=== PATIENT | female | born 1990 | race Caucasian/White ===

== ENCOUNTER → 2019-01-17 15:32 | Outpatient (CLI) | payer MEDICAID, SELFPAY ==
[2019-01-17 14:28] VITALS: BMI 21.9
[2019-01-17 18:20] LABS: Chlamydia Trachomatis by PCR Negative (Negative); Neisserai gonorrhoeae by PCR Negative (Negative); Probe Check PASS; Sample Adequacy Control PASS; Specimen Processing Control PASS
[2019-01-22 17:11] LABS: HPV Reflexed? NOT INDICATED
== END ==
PROVIDERS: Family Provider Family Medicine; PCP Family Medicine; Referring Provider Nurse Practitioner Women's Health; Visit Provider Nurse Practitioner Women's Health
DX: Z12.4 Encounter for screening for malignant neoplasm of cervix (principal); Z11.3 Encounter for screening for infections with a predominantly sexual mode of transmission
CPT/HCPCS: 87491; 87591; 87624; 88175; G0145

== ENCOUNTER → 2022-05-18 | Outpatient (CLI) | payer MEDICAID, SELFPAY ==
[2022-05-25 17:52] LABS: HPV APTIMA, High Risk Positive (Negative)
== END | disposition home or self-care (01) ==
LOC: LABSPEC 16:38
PROVIDERS: PCP Family Medicine; Visit Provider Nurse Practitioner Women's Health
DX: Z12.4 Encounter for screening for malignant neoplasm of cervix (principal)
CPT/HCPCS: 87624; 88175; G0145

== ENCOUNTER → 2022-06-02 | Outpatient (CLI) | payer MEDICAID, SELFPAY ==
--- NOTE | 2022-06-02 12:02 | US_ITS ---
STUDY: ULTRASOUND OF THE FEMALE PELVIS - COMPLETE REASON FOR EXAM: Female, 31 years old. Pelvic pain. LMP: 05/13/2022. TECHNIQUE: Transabdominal and Transvaginal TECHNICAL QUALITY: Adequate. COMPARISON: None. FINDINGS: The uterus is anteverted and is in a midline position. The uterus measures 8.3 cm x 5.1 cm x 4.3 cm. Normal uterine cervix. The endometrium measures 4.7 mm in thickness, and is heterogeneous (striated). There is no demonstrated endometrial mass. There is no demonstrated myometrial mass. I.U.D. - The patient does have an I.U.D. . It is located within the fundal portion of the uterus. The right ovary is visualized. The right ovary measures 3.3 cm x 2.2 cm x 1.9 cm. Ovarian follicles are seen. There is no right ovarian cyst or ovarian mass. There is no visualized right adnexal mass or complex lesion. There is normal arterial and normal venous vascularity. The left ovary is visualized. The left ovary measures 2.8 cm x 2.9 cm x 1.7 cm. Ovarian follicles are seen. There is no left ovarian cyst or ovarian mass. There is no visualized left adnexal mass or complex lesion. There is normal arterial and normal venous vascularity. There is no fluid in the cul-de-sac. The pre void volume of the bladder was 151 ml. US/Transvaginal Non- IMPRESSION: IUD is seen within the endometrium. Small follicles are seen in both ovaries. Electronically Signed: Declan Goetz MD at 14:42 EDT ,
--- NOTE | 2022-06-02 12:02 | US_ITS ---
STUDY: ULTRASOUND OF THE FEMALE PELVIS - COMPLETE REASON FOR EXAM: Female, 31 years old. Pelvic pain. LMP: 05/13/2022. TECHNIQUE: Transabdominal and Transvaginal TECHNICAL QUALITY: Adequate. COMPARISON: None. FINDINGS: The uterus is anteverted and is in a midline position. The uterus measures 8.3 cm x 5.1 cm x 4.3 cm. Normal uterine cervix. The endometrium measures 4.7 mm in thickness, and is heterogeneous (striated). There is no demonstrated endometrial mass. There is no demonstrated myometrial mass. I.U.D. - The patient does have an I.U.D. . It is located within the fundal portion of the uterus. The right ovary is visualized. The right ovary measures 3.3 cm x 2.2 cm x 1.9 cm. Ovarian follicles are seen. There is no right ovarian cyst or ovarian mass. There is no visualized right adnexal mass or complex lesion. There is normal arterial and normal venous vascularity. The left ovary is visualized. The left ovary measures 2.8 cm x 2.9 cm x 1.7 cm. Ovarian follicles are seen. There is no left ovarian cyst or ovarian mass. There is no visualized left adnexal mass or complex lesion. There is normal arterial and normal venous vascularity. There is no fluid in the cul-de-sac. The pre void volume of the bladder was 151 ml. US/Pelvic (Non ) IMPRESSION: IUD is seen within the endometrium. Small follicles are seen in both ovaries. Electronically Signed: Declan Goetz MD at 14:42 EDT ,
== END | disposition home or self-care (01) ==
LOC: OPUS 12:00
PROVIDERS: PCP Family Medicine; Visit Provider Nurse Practitioner Women's Health
DX: R10.2 Pelvic and perineal pain (principal)
CPT/HCPCS: 76830; 76856; 93976

== ENCOUNTER → 2022-06-16 | Outpatient (CLI) | payer MEDICAID, SELFPAY ==
--- NOTE | 2022-06-16 | IMM_PTH ---
PATIENT: CODIE KAUR LOC: [facility] U#:[id number] AGE/SX: 31/F ROOM: RE06/16/[address]: Dr. Nelly Antoine MD : 1990 BED: DIS: 06/16/2022 SPEC #: [id number] RECD: 06/20/22 12:52 STATUS: MYRNA REKurtis #: [id number] ESTER: 06/16/22 00:[address]: Nelly Antoine DEPT: IMMUNOHISTOCHEMISTRY RECD BY: Estelita Garcia ENTERED: 06/20/22 12:52 SP TYPE: IMMUNO OTHR DR: Dr. Toño Rodriguez MD Tissues: A - Uterine cervix, NOS B - Endocervical Procedures: p16 (initial) KI-67 (add) PHYSICIAN & INSTITUTION [place] [id number] SPECIMEN INFORMATION: Tissue Source: A ? Cervix at 1 o?clock, biopsy, B ? Endocervix, curettage Clinical Info: Abnormal pap Specimen Number: [id number] A & B CPT code: 32446 x2, 57900 x2 METHODOLOGY: Deparaffinized sections of prefer/formalin-fixed tissue or PAP/DQ stained slides are incubated with monoclonal/polyclonal antibodies/oligonucleotide probes. Localization is made via biotin free immunoperoxidase method. Appropriate controls are performed and reacted as expected. Results on target cell population are indicated in the following table: RESULTS: ANTIBODY / CLONE RESULT Block A P16 (E6H4) positive, block-like Ki-67 (30-9) positive, moderate Block B P16 (E6H4) positive, block-like Ki-67 (30-9) positive, moderate These tests were developed and their performance characteristics determined by [facility]. They may not have been cleared or approved by the U.S. Food and Drug Administration. The FDA has determined that such clearance or approval is not necessary. The above immunohistochemical/dualISH markers are ordered and reviewed by the Pathologist. INTERPRETATION: A. Cervix at 1 o?clock, biopsy: Moderate squamous dysplasia, PAUL II (HSIL). B. Endocervix, curettage: Moderate squamous dysplasia, PAUL II (HSIL). AM:pancho 06/21/2022
--- NOTE | 2022-06-16 | CER_PTH ---
PATIENT: CODIE KAUR [facility] U#:[id number] AGE/SX: 31/F ROOM: RE06/16/[address]: Dr. Nelly Antoine MD : 1990 BED: DIS: 06/16/2022 SPEC #: [id number] RECD: 06/16/22 16:43 STATUS: MYRNA LLANES #: [id number] ESTER: 06/16/22 00:[address]: Nelly Antoine DEPT: SURGICAL PATHOLOGY RECD BY: Herson Kwok ENTERED: 06/17/22 07:19 SP TYPE: CERV OTHR DR: Dr. Toño Rodriguez MD Tissues: A - Uterine cervix, NOS B - Endocervical Procedures: Surgery Specimen Level IV HEADER OPERATION: Colposcopy PRE-OP DIAGNOSIS: Abnormal pap of cervix TISSUE SUBMITTED: A ? 1 o?clock, B - ECC MICROSCOPIC DIAGNOSIS A. Cervix at 1 o?clock, biopsy: Moderate squamous dysplasia, PAUL II (HSIL). Changes consistent with HPV cytopathic effect. See comment. B. Endocervix, curettings: Strips of benign superficial endocervix. Fragment of squamous mucosa with moderate squamous dysplasia, PAUL II (HSIL) See comment. AM:pancho 06/20/2022 COMMENT A & B. Results from immunohistochemistry ([id number]) for surrogate HPV marker (p16) will be reported separately. Case has been reviewed in consultation with Dr. Up who concurs with the above diagnosis. IDC:PATRICIA MICROSCOPIC DESCRIPTION Slides are reviewed. GROSS DESCRIPTION A - Received in fixative is one container labeled with the patient's name and designated 1 o'clock. The specimen consists of one irregular fragment of light stauffer soft tissue that measures 0.3 x 0.3 x 0.1 cm. The specimen is totally submitted in one cassette. B - Received in fixative is one container labeled with the patient's name and designated ECC. The specimen consists of a scant amount of soft tissue. The specimen is totally submitted for cell block preparation. / PATRICIA:pancho 06/17/2022 TC:0 CPT: 62373 x2
== END | disposition home or self-care (01) ==
PROVIDERS: PCP Family Medicine; Visit Provider Obstetrics & Gynecology
DX: N87.1 Moderate cervical dysplasia (principal)
CPT/HCPCS: 88305; 88341; 88342

== ENCOUNTER 2022-08-02 13:59 | Day surgery (SDC) | payer MEDICAID, SELFPAY ==
--- NOTE | 2022-08-01 22:51 | HP.PCM_ITS ---
History and Physical [facility] [address] [place] [address] OFFICE VISIT Date of Service:? 07/07/22 MR#: [id number] Acct: [id number] Name:CODIE AMARAL Rep #: [id number] : 1990 ? ? Provider: Dr. Nelly Antoine MD Age/Sex:? 31/F ? ? [place] [facility] [place]: [place] Intake Vital Signs ? 07/07/2209:07 07/07/2209:09 Height 5 ft 5 ft Weight: 114 lb ? BMI 22.2 ? BP 119/66 ? Intake Visit Reasons:?LEEP Chief Complaint: pre op LEEP Residential Pest Control Technician Required: No Is patient in pain?: No Allergies No Known Allergies Allergy (Verified 05/18/22 13:32) Medications copper 380 square mm intrauterine device (ParaGard T 380A) 1 device intrauterine ONCE 12/01/20 [History Confirmed 07/07/22] varenicline 1 mg tablet (Chantix Continuing Month Box) 1 mg PO BID 12 weeks #168 tabs 06/21/22 [Rx Confirmed 07/07/22] Is last menstrual period known: No Post menopausal: No Patient : No : [facility] Medical History? PAUL II (cervical intraepithelial neoplasia II) Surgical History? H/O breast augmentation Social History? number of children:? 2 current occupational status:? employed current occupation:? [employer] Smoking Status:? Never smoker alcohol intake:? current alcohol intake frequency: holidays/special occasions only substance use type:? does not use what type of physical activity do you participate in:? none seatbelt use:? always do you feel safe at home:? Yes HPI LEEP Details: CODIE KAUR is a 31 year old who presents for preop appointment planning LEEP for PAUL II ROS Const Constitutional: Denies fatigue, fever(s), headache(s), increased appetite, poor appetite, weight gain or weight loss GI GI: Reports as per HPI; Denies abdominal pain, constipation, nausea or vomiting : Reports as per HPI; Denies difficulty voiding, dysuria, hematuria, pelvic pain, urinary frequency, urinary incontinence, urinary hesitancy, urinary urgency, vaginal discharge, vaginal dryness, vaginal odor, vaginal pruritus or other Exam Const General: cooperative, healthy appearing, comfortable, no acute distress and well developed Orientation: alert HENMT Head: normal to inspection and normocephalic Ears: hearing grossly normal bilaterally and external ears normal Nose: external nose normal and nares normal Face and sinus: normal facial exam Neck Neck: normal visual inspection, no lymphadenopathy and trachea midline Thyroid: thyroid normal Resp Effort & Inspection: normal respiratory effort Musc Other: gross motor intact no deficits, full bilateral strength Skin General: no rashes or lesions noted Neuro Motor: muscle tone normal throughout Coding Level of Care Code No Charge Diagnoses PAUL II (cervical intraepithelial neoplasia II)? N87.1 Cervical high risk HPV (human papillomavirus) test positive? R87.810 Assessment and Plan Assessment and Plan (1) PAUL II (cervical intraepithelial neoplasia II): ?Status:?Acute ?Comment: Scheduled LEEP (2) Cervical high risk HPV (human papillomavirus) test positive: ?Status:?Acute ?Comment: colposcopy 06/16/22 Plan After discussing the patient's diagnosis and treatment plan options, patient wishes to proceed with surgical management.? I have discussed with the patient the risks, benefits, and alternatives of the procedure which include but are not limited to risks of anesthesia, bleeding, infection, possible damage to bowel, bladder, or surrounding vasculature which could lead to additional surgery to evaluate any complications.? Patient agrees to procedure and wishes to proceed.? ACOG/uptodate references given for additional information regarding procedure.? UPDATE- I have seen the patient and performed any clinically relevant updates to the history and physical exam. Nelly Antoine MD
--- NOTE | 2022-08-02 | IMM_PTH ---
PATIENT: CODIE KAUR [place] [facility] [place][id number] AGE/SX: 31/F ROOM: RE08/02/[address]: Dr. Nelly Antoine MD : 1990 BED: DIS: 08/02/2022 SPEC #: [id number] RECD: 08/04/22 12:40 STATUS: MYRNA REQ #: [id number] ESTER: 08/02/22 00:[address]: Nelly Antoine DEPT: IMMUNOHISTOCHEMISTRY RECD BY: Estelita Garcia ENTERED: 08/04/22 12:42 SP TYPE: IMMUNO OTHR DR: Dr. Toño Rodriguez MD Tissues: A - UTERINE CERVIX LEEP B - Endometrium, NOS Procedures: p16 (initial) KI-67 (add) P16 (add) PHYSICIAN & INSTITUTION [place] [id number] SPECIMEN INFORMATION: Tissue Source: A - Cervix, LEEP conization, B - Endometrial curettings Clinical Info: Cervical dysplasia Specimen Number: [id number] A1-A4, B CPT code: 11139 x2, 99698 x8 METHODOLOGY: Deparaffinized sections of prefer/formalin-fixed tissue or PAP/DQ stained slides are incubated with monoclonal/polyclonal antibodies/oligonucleotide probes. Localization is made via biotin free immunoperoxidase method. Appropriate controls are performed and reacted as expected. Results on target cell population are indicated in the following table: RESULTS: ANTIBODY / CLONE RESULT Block A1 P16 (E6H4) negative Ki-67 (30-9) negative Block A2 P16 (E6H4) positive, focal, patchy Ki-67 (30-9) negative Block A3 P16 (E6H4) negative Ki-67 (30-9) negative Block A4 P16 (E6H4) negative Ki-67 (30-9) negative Block B P16 (E6H4) positive, block-like Ki-67 (30-9) positive, moderate These tests were developed and their performance characteristics determined by [facility]. They may not have been cleared or approved by the U.S. Food and Drug Administration. The FDA has determined that such clearance or approval is not necessary. The above immunohistochemical/dualISH markers are ordered and reviewed by the Pathologist. INTERPRETATION: A. Cervix, LEEP conization: Focal HPV change noted. See comment. B. Endometrial curettings: Moderate to severe squamous dysplasia, PAUL II-III (HSIL). AM:pancho 08/08/2022 Comment: A. Margins are free of dysplasia.
[2022-08-02 14:46] LABS: Internal QC Validated? YES +Cl - CLEAR BKGD; Pregnancy, Urine Negative Negative
[2022-08-02 14:51] VITALS: BP 101/55; PULSE 58; RESP 12; TEMP 37; O2SAT 16; BMI 22.4
[2022-08-02 14:56] LABS: Absolute Lymphocyte Count 3.62 X10^3/uL (0.83-4.51); Absolute Neutrophil Count 6.2 X10^3/uL (2.0-7.7); Basophil# 0.05 X10^3/uL; Basophil% 0.5 % (0-1); Eosinophil# 0.26 X10^3/uL; Eosinophils% 2.4 % (0-5); Hematocrit 38.8 % (37-47); Hemoglobin 13.7 g/dL (12.0-15.0); Lymphocyte # 3.62 X10^3/ul (0.83-4.51); Lymphocyte % 32.8 % (19-41); Mean Corp Hgb Conc 35.3 g/dL (32-36); Mean Corpuscular Hgb 32.5 pg (27.0-32.0); Mean Corpuscular Volume 92.2 fL (81-99); Mean Platelet Vol. 9.6 fl (6.2-12.0); Monocyte# 0.88 X10^3/uL; NRBC Flagged by Analyzer 0 % (0-5); Neutrophil # 6.18 X10^3/uL (2.7-7.7); Neutrophil % 55.9 % (47-70); Platelet Count 225 K/mm3 (150-450); RBC Distribution Width CV 12.2 % (11.6-14.6); RBC Distribution Width SD 41.5 fl (35.1-43.9); Red Blood Count 4.21 M/mm3 (4.2-5.4)
[2022-08-02] MEDS: Lactated Ringers 1,000 ML 125 ML IV (14:58)
--- NOTE | 2022-08-02 15:35 | CONE_PTH ---
PATIENT: CODIE KAUR LOC: [facility] [place] U#:[id number] AGE/SX: 31/F ROOM: RE08/02/[address]: Dr. Nelly Antoine MD : 1990 BED: DIS: 08/02/2022 SPEC #: [id number] RECD: 08/03/22 07:19 STATUS: MYRNA LLANES #: [id number] ESTER: 08/02/22 15:[address]: Nelly Antoine DEPT: SURGICAL PATHOLOGY RECD BY: Martinez Martines ENTERED: 08/03/22 08:52 SP TYPE: Leep Cone ARELI DR: Dr. Toño Rodriguez MD Tissues: A - UTERINE CERVIX LEEP B - Endometrium, NOS Procedures: Surgery Specimen Level IV Surgery Specimen Level V HEADER OPERATION: LEEP cone PRE-OP DIAGNOSIS: Cervical dysplasia TISSUE SUBMITTED: A ? Cervical LEEP, B ? Endometrial curettings after LEEP MICROSCOPIC DIAGNOSIS A. Cervix, LEEP conization: Focal HPV change. Minimal chronic inflammation. Margins are free of dysplasia. See comment. B. Endometrial curettings: Detached fragments of squamous epithelium with moderate squamous dysplasia. See comment. AM:pancho 08/04/2022 COMMENT A. There is no evidence of high-grade dysplasia. Reparative/regenerative changes are identified. Immunohistochemistry ([id number]) for surrogate HPV marker (p16) supports the above diagnosis. B. Immunohistochemistry ([id number]) for surrogate HPV marker (p16) supports the above diagnosis. Reference is made to the patient's previous cervix at 1 o?clock, biopsy ([id number]) in which moderate squamous dysplasia, PAUL II was identified. MICROSCOPIC DESCRIPTION Slides are reviewed. GROSS DESCRIPTION A - Received in fixative is one container labeled with the patient's name and designated cervical LEEP. The specimen consists of four irregular fragments of glistening stauffer mucosa with attached submucosal tissue ranging in size from 1 to 2.5 cm in greatest dimension. The fragments are inked, serially sectioned and totally submitted in four cassettes. B - Received in fixative is one container labeled with the patient's name and designated endometrial curettings. The specimen consists of multiple minute fragments of light stauffer tissue. The specimen is submitted for cell block preparation. / GIA:pancho 08/03/2022 TC:3 CPT: 40372, 57004
[2022-08-02] MEDS: FERRIC SUBSULFATE 8 GM SOLN (18:20)
--- NOTE | 2022-08-02 18:23 | OP.PCM_ITS ---
Problems Associated Problem List Diagnoses (1) PAUL II (cervical intraepithelial neoplasia II): Report of Operation Date of Procedure: 08/02/22 Pre-Operative Diagnosis: see problem list Post-Operative Diagnosis: same Surgery/Procedure Performed:: LEEP procedure Description of Surgical Findings:: grossly nl cervix pathology laboratory aide: None Type of Anesthesia: General and Local Special Medications: monsels paste Specimen's removed: cervix ecc Drains: none Estimated Blood Loss (mL): 50 Fluids Replaced: crystalloid Description of Procedure: Paracervical block was placed with 1% lidocaine and using a loop electrode the outer part of the cervix was removed including the squamocolumnar junction. Endocervical curettings were taken and the base of the cervix was cauterized around the borders and the base to obtain excellent hemostasis. IUD strings were intact. Monsel's paste was placed and patient was awoken and taken recovery in stable condition. Grafts/Implants Used: none Complications none Admit VTE Documentation VTE Present on Admission: No VTE Mechan Device Prophylaxis: SCD's Multi Select Codes Urinary/Genital Urinary/Genital CPT Codes: 22587 Endocervical curettage and 65357 LEEP
--- NOTE | 2022-08-02 18:25 | DCINST_ITS ---
Discharge Instructions Procedure LEEP Diet Discharge Diet: No restrictions Activity Discharge Activity: Return to Normal Activity and May Not Drive (while taking narcotic pain medications.) May resume sexual activity in: 4 weeks (Nothing in the vagina for 4 weeks.) Dressing / Incision Call your doctor if you observe: Fever of 101 or Higher and Using more than 1 pad per hour Follow Up Care Please Follow Up With: Nelly Antoine MD When: Call [phone] for follow-up appointment. Test Results: Test results from this visit will be discussed in further detail at your follow- up appointment, if applicable. Discharge Plan Admission Attending Provider: Nelly Antoine Primary Care Provider: Toño Rodriguez Discharge Orders/Prescriptions Prescriptions: No Action ParaGard T 380A 380 square mm intrauterine device 1 device INTRA-UTER ONCE Rx Instructions: as a single dose Referrals / Follow Up: Toño Rodriguez MD [Primary Care Provider] - Disposition Disposition (needs filled in before D/C Order can be placed): Home, Self Care
[2022-08-02 18:30] VITALS: BP 101/55; BP 102/65; PULSE 60; RESP 16; TEMP 36.7; O2SAT 100
[2022-08-02 18:35] VITALS: BP 101/55; BP 107/50; PULSE 57; RESP 16; O2SAT 100
[2022-08-02 18:40] VITALS: BP 101/55; BP 95/51; PULSE 62; RESP 16; O2SAT 100
[2022-08-02 18:45] VITALS: BP 101/55; BP 104/50; PULSE 52; RESP 16; TEMP 36.8; O2SAT 100
[2022-08-02 19:15] VITALS: BP 101/55; BP 102/60; PULSE 55; RESP 16; TEMP 36.8; O2SAT 99
== END 2022-08-02 19:20 | disposition home or self-care (01) ==
LOC: SDC 14:03 → AC 14:04
PROVIDERS: PCP Family Medicine; Referring Provider Obstetrics & Gynecology; Visit Provider Obstetrics & Gynecology
PROC: 0UBC7ZZ Excision of Cervix, Via Natural or Artificial Opening (ICD-10-PCS; CPT 57522; principal; 2022-08-02 15:20)
DX: N87.1 Moderate cervical dysplasia (principal); R87.810 Cervical high risk human papillomavirus (HPV) DNA test positive; Z87.891 Personal history of nicotine dependence
CPT/HCPCS: 57522; 00940; 81025; 85025; 86850; 86900; 86901; 88305; 88307; 88341; 88342; J7120; J2405

== ENCOUNTER → 2023-02-06 | Outpatient (CLI) | payer MEDICAID, SELFPAY ==
[2023-02-06 09:58] LABS: Absolute Lymphocyte Count 1.95 X10^3/uL (0.83-4.51); Absolute Neutrophil Count 3.6 X10^3/uL (2.0-7.7); Basophil# 0.04 X10^3/uL; Basophil% 0.6 % (0-1); Eosinophil# 0.41 X10^3/uL; Lymphocyte # 1.95 X10^3/ul (0.83-4.51); Lymphocyte % 28.8 % (19-41); Mean Corp Hgb Conc 33.3 g/dL (32-36); Mean Corpuscular Hgb 31.1 pg (27.0-32.0); Mean Corpuscular Volume 93.3 fL (81-99); Mean Platelet Vol. 9.6 fl (6.2-12.0); Monocyte# 0.71 X10^3/uL; Monocyte% 10.5 % (0-10); NRBC Flagged by Analyzer 0 % (0-5); Neutrophil # 3.64 X10^3/uL (2.7-7.7); Neutrophil % 53.7 % (47-70); Platelet Count 236 K/mm3 (150-450); RBC Distribution Width CV 12.4 % (11.6-14.6); RBC Distribution Width SD 42.8 fl (35.1-43.9); Red Blood Count 4.18 M/mm3 (4.2-5.4); White Blood Count 6.8 K/mm3 (4.4-11.0)
[2023-02-06 10:29] LABS: Thyroid Stim Hormone (TSH) 1.33 uIU/mL (0.358-3.74)
[2023-02-13 15:08] LABS: HPV APTIMA, High Risk Positive (Negative)
== END | disposition home or self-care (01) ==
PROVIDERS: PCP Family Medicine; Referring Provider Obstetrics & Gynecology; Visit Provider Obstetrics & Gynecology
DX: Z12.4 Encounter for screening for malignant neoplasm of cervix (principal); N93.9 Abnormal uterine and vaginal bleeding, unspecified; Z13.29 Encounter for screening for other suspected endocrine disorder
CPT/HCPCS: 36415; 84443; 85025; 87624; 88175; G0145

== ENCOUNTER → 2023-03-01 | Outpatient (CLI) | payer MEDICAID, SELFPAY ==
--- NOTE | 2023-03-01 15:33 | US_ITS ---
STUDY: ULTRASOUND OF THE FEMALE PELVIS - COMPLETE REASON FOR EXAM: Female, 32 years old. aub LMP: 02/04/2023 TECHNIQUE: Transabdominal and Transvaginal TECHNICAL QUALITY: Adequate. COMPARISON: 06/02/2022. FINDINGS: The uterus is anteverted and is in a midline position. The uterus measures 8.0 x 4.6 x 4.2 cm. Normal uterine cervix. The endometrium measures 4 mm in thickness, and is hyperechoic. There is no demonstrated endometrial mass. There is no demonstrated myometrial mass. I.U.D. - The patient does have an I.U.D. IUD is in normal position and has not changed. The right ovary is visualized. The right ovary measures 3.6 x 2.9 x 1.6 cm cm. There is no right ovarian cyst or ovarian mass. There is no visualized right adnexal mass or complex lesion. There is normal arterial and normal venous vascularity. The left ovary is visualized. The left ovary measures 2.5 x 2.0 x 1.2 cm. There is no left ovarian cyst or ovarian mass. There is no visualized left adnexal mass or complex lesion. There is normal arterial and normal venous vascularity. There is no fluid in the cul-de-sac. The pre void volume of the bladder was 236 ml. US/Pelvic w/ Transvaginal IMPRESSION: Normal female pelvis. Normal appearance of IUD. Electronically Signed: Hiram Burroughs MD at 22:25 EDT ,
== END | disposition home or self-care (01) ==
LOC: US 15:31
PROVIDERS: PCP Family Medicine; Referring Provider Obstetrics & Gynecology; Visit Provider Obstetrics & Gynecology
DX: N93.9 Abnormal uterine and vaginal bleeding, unspecified (principal)
CPT/HCPCS: 76830; 76856

== ENCOUNTER → 2024-10-07 | Outpatient (CLI) | payer BC, SELFPAY ==
[2024-10-10 18:07] LABS: HPV APTIMA, High Risk Positive (Negative)
== END | disposition home or self-care (01) ==
LOC: LABSPEC 12:13
PROVIDERS: PCP Family Medicine; Referring Provider Nurse Practitioner Women's Health; Visit Provider Nurse Practitioner Women's Health
DX: Z12.4 Encounter for screening for malignant neoplasm of cervix (principal); N87.1 Moderate cervical dysplasia
CPT/HCPCS: 87624; 88175; G0145

== ENCOUNTER → 2024-10-11 | Outpatient (CLI) | payer BC, SELFPAY ==
--- NOTE | 2024-10-11 08:32 | US_ITS ---
STUDY: ULTRASOUND BREAST - RIGHT REASON FOR EXAM: Female, 34 years old. Palpable lump in the right breast. TECHNIQUE: Axial and longitudinal images of the RIGHT breast were performed with a high resolution ultrasound transducer. # OF IMAGES: 23 COMPARISON: Comparison is made with prior mammogram done earlier today. FINDINGS: RIGHT Breast: The axillary region of the right breast was examined with ultrasound. The palpable lump corresponds to a 1.1 cm x 1.2 cm x 0.6 cm hypoechoic solid nodule. Vascularity is seen within it. This may represent an enlarged lymph node. Biopsy recommended. US/Breast Limited Unilateral IMPRESSION: 1.17 x 1.2 cm x 0.6 cm hypoechoic solid nodule at the 10:00 position of the breast 11 cm from nipple. Increased vascularity. This may represent an enlarged lymph node. Biopsy recommended. ASSESSMENT CATEGORY: BIRADS Category 4: Suspicious - Biopsy Should Be Considered. A letter regarding these results will be sent to the patient by the facility within 30 days. Electronically Signed: Declan Goetz MD at 10:16 EST ,
--- NOTE | 2024-10-11 08:32 | BI_ITS ---
MAMMOGRAPHY - BILATERAL DIAGNOSTIC REASON FOR EXAM: Female, 34 years old. Right breast lump since June. Occasional tenderness. PERTINENT HISTORY: Bilateral breast implants. TECHNIQUE: Digital bilateral breast anat (3D mammographic acquisition) in the CC and MLO projections. 2-D mediolateral oblique (MLO) and craniocaudad (CC) views of both breasts were obtained. CAD: Full Field Digital Mammography with Computer Added Detection was performed. COMPARISON: None. Baseline examination. FINDINGS: Breast Composition: The breasts are extremely dense, which lowers the sensitivity of mammography. There are no dominant masses or suspicious calcifications. Bilateral breast implants are seen. No other significant abnormalities are identified. BI/DIAG MAMM W/CAD, BILAT IMPRESSION: Negative diagnostic mammogram. With the patient''s history of a palpable lump in the right breast as described, correlation with ultrasound recommended. ASSESSMENT CATEGORY: BIRADS Category 0: Incomplete. Need additional imaging evaluation. A letter regarding these results will be sent to the patient by the facility within 30 days. Approximately 10% of breast cancers are not detected by mammography. A normal mammogram should not delay biopsy of a clinically suspicious abnormality. Electronically Signed: Declan Goetz MD at 9:45 EST ,
== END | disposition home or self-care (01) ==
LOC: OPBI 08:32
PROVIDERS: PCP Nurse Practitioner Family; Referring Provider Nurse Practitioner Women's Health; Visit Provider Nurse Practitioner Women's Health
DX: N63.11 Unspecified lump in the right breast, upper outer quadrant (principal)
CPT/HCPCS: 76642; 77062; 77066; G0279

== ENCOUNTER 2024-10-23 11:34 | Day surgery (SDC) | payer BC, SELFPAY ==
[2024-10-23] VITALS (7 sets, daily range): BP systolic 102–113; BP diastolic 44–64; PULSE 62–70; RESP 16; TEMP 36.3–36.8; O2SAT 98–100; BMI 21.9
--- NOTE | 2024-10-23 12:14 | HP.PCM_ITS ---
HPI - General General Date of Admission: 10/23/24 Date of Service: 10/23/24 Chief Complaint: right breast mass HPI Narrative CODIE KAUR, is a 34 F who presents for excisional biopsy of right breast lump. 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 Wears contact lenses Wears partial dentures Anxiety Alcohol use Seizures H/O cystic acne PAUL II (cervical intraepithelial neoplasia II) Home Medications ?Medication ?Instructions ?Recorded ?Last Taken ?Type copper 380 square mm intrauterine 1 device intrauterine ONCE 12/01/20 Unknown History device (ParaGard T 380A) Allergy/AdvReac Type Severity Reaction Status Date / Time No Known Allergies Allergy Verified 10/23/24 12:00 Surgical History H/O LEEP H/O breast augmentation Social History number of children: 2 current occupational status: employed current occupation: [employer] Smoking Status: Current some day smoker tobacco type: cigarettes Electronic Cigarette Use: with nicotine alcohol intake: current alcohol intake frequency: holidays/special occasions only substance use type: does not use what type of physical activity do you participate in: none seatbelt use: always do you feel safe at home: Yes ROS Constitutional Constitutional: Reports systems reviewed and no addt'l complaints, except as documented Eyes Eyes: Reports systems reviewed and no addt'l complaints, except as documented ENT HEENT: Reports systems reviewed and no addt'l complaints, except as documented Cardiovascular Cardiovascular: Reports systems reviewed and no addt'l complaints, except as documented Respiratory/Chest Respiratory/Chest: Reports systems reviewed and no addt'l complaints, except as documented Gastrointestinal Gastrointestinal: Reports systems reviewed and no addt'l complaints, except as documented Genitourinary Genitourinary: Reports systems reviewed and no addt'l complaints, except as documented Musculoskeletal Musculoskeletal: Reports systems reviewed and no addt'l complaints, except as documented Vital Signs Vital Signs Vital Signs: 10/23/24 12:03 10/23/24 12:03 Temperature 98.3 F Temperature Source Temporal Pulse Rate 66 Respiratory Rate 16 Respiratory Pattern Normal Blood Pressure 113/44 L Blood Pressure Mean 67 Blood Pressure Source Monitor Blood Pressure Position Semi-Fowlers Blood Pressure Location Left Arm Pulse Ox 100 Oxygen Delivery Method Room Air Weight Weight: 112 lb 6.972 oz Body Mass Index (BMI) 21.9 Physical Exam Const alert, oriented x3 and no apparent distress Charges/Coding Visit Charges Inpatient E&M: 88519 Init Hosp L1
--- NOTE | 2024-10-23 12:18 | PRE.ANES_ITS ---
ASA Classification* ASA Classification ASA Classification: 2 Assessment & Plan Anesthesia* Anesthesia Assessment Anesthesia Assessment: Discussed sedation and/or anesthesia options, risks, benefits, and alternatives with patient/parents/legal guardian/POA. Questions invited. The patient/parents/legal guardian/POA seems to understand and agrees to proceed with anesthesia plan. Reviewed the physical assessment, medical history, allergy history and patient home medications list prior to surgery/procedure/anesthetic and documented any changes. Performed airway and anesthesia risk assessments. Anesthesia Type Anesthesia Type: General History Source History Obtained from:: Patient and Chart Anesthesia Focused Assessment* Temperature: 98.3 F Pulse Rate: 66 Blood Pressure: 113/44 Respiratory Rate: 16 Pulse Ox: 100 Oxygen Delivery Method: Room Air Airway Assessment Mouth opens: >3 cm Mallampati Score: II Teeth Condition: Intact and Partial Neck Range of motion (ROM): Full ROM Focused Labs Anesthesia Preop lab: CBC WBC 6.8 K/mm3 (4.4-11.0) 02/06/23 09:38 RBC 4.18 M/mm3 (4.2-5.4) L 02/06/23 09:38 Hgb 13.0 g/dL (12.0-15.0) 02/06/23 09:38 Hct 39.0 % (37-47) 02/06/23 09:38 Plt Count 236 K/mm3 (150-450) 02/06/23 09:38 CHEMISTRY TSH 1.33 uIU/mL (0.358-3.74) 02/06/23 09:38 COAG Urine Test Negative Negative 08/02/22 14:24 Tst Clinic Negative 06/16/22 15:41 Pre-Assessment Diagnosis/Proposed Procedure Planned Operative Procedure(s): (R) Excision, Right Breast Mass or Biopsy Anesthesia History 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 When Was Last Pacemaker Check QUESTION #4 FULL TEXT: You/Your Family Experience fever (hyperthermia) with Anesthesia Last Oral Intake Last Oral intake: Last Oral Intake NPO since 19:00 10/23/24 12:03 Meds taken in AM with sips of No 10/23/24 12:03 water? Meds patient instructed to take am of surgery PONV PONV - web applications developer: PONV - web applications developer Female Yes 10/18/24 10:11 HX of Motion Sickness Yes 10/18/24 10:11 HX of N/V After Surgery No 10/18/24 10:11 Non-Smoker No 10/18/24 10:11 Duration of Surgery greater Yes 10/18/24 10:11 than 60 minutes Number of Risk Factors 3 10/18/24 10:11 PONV Score Moderate Risk 10/18/24 10:11 Height & Weight Height & Weight: Anesthesia: Height & Weight Height 5 ft 10/23/24 12:03 Weight: 51 kg 10/23/24 12:03 Body Mass Index (BMI) 21.9 10/23/24 12:03 Respiratory Assessment Respiratory Assessment - web applications developer: Respiratory Tract Infection Hx - web applications developer Hx Respiratory Tract Infection No 10/18/24 10:11 STOP Sleep Apnea STOP Sleep Apnea - web applications developer: STOP Sleep Apnea - web applications developer Hx Hypertension No 10/18/24 10:11 Hx Sleep Apnea No 10/18/24 10:11 CPAP BIPAP Do you snore loudly (louder No 10/18/24 10:11 than talking or can be heard Do you often feel tired/ No 10/18/24 10:11 fatigued/ sleepy during daytime? Has anyone observed you stop No 10/18/24 10:11 breathing during sleep? STOP Results Negative 10/18/24 10:11 QUESTION #5 FULL TEXT : Do you snore loudly (louder than talking or can be heard through closed doors)? Tobacco Use History Tobacco Use History - web applications developer: Tobacco Use History - web applications developer Tobacco Use Smoking Status Current some day smoker 10/18/24 10:11 Hx Tobacco Use Yes 10/18/24 10:11 Years Smoking Packs Smoked per Day Smoking Cessation Date was within the last 15 years Hx Smoking Cessation Date 10/18/24 10:11 Hx Smoking Cessation Counseling Hematologic Medial History Hematologic Hx - web applications developer: Hematologic Medical Hx - equine manager Hx of Blood Transfusion No 10/18/24 10:11 Hx of Transfusion in last 3 No 10/18/24 10:11 Months Date of Last Transfusion (if within last 3 months) Ever experience any problems No 10/18/24 10:11 with transfusion(s)? Specify any problems Hx of Preganancy in last 3 No 10/18/24 10:11 Months Nurse Filling Out Transfusion MGRIFFITH 10/18/24 10:11 & Questions: Date: 10/18/24 10/18/24 10:11 Time: 10:13 10/18/24 10:11 Patient unable to answer at this time (ie. 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 Wears contact lenses Wears partial dentures Anxiety Alcohol use Seizures H/O cystic acne PAUL II (cervical intraepithelial neoplasia II) Home Medications ?Medication ?Instructions ?Recorded ?Last Taken ?Type copper 380 square mm intrauterine 1 device intrauterine ONCE 12/01/20 Unknown History device (ParaGard T 380A) Allergy/AdvReac Type Severity Reaction Status Date / Time No Known Allergies Allergy Verified 10/23/24 12:00 Surgical History H/O LEEP H/O breast augmentation Social History number of children: 2 current occupational status: employed current occupation: [employer] Smoking Status: Current some day smoker tobacco type: cigarettes Electronic Cigarette Use: with nicotine alcohol intake: current alcohol intake frequency: holidays/special occasions only substance use type: does not use what type of physical activity do you participate in: none seatbelt use: always do you feel safe at home: Yes Review of Systems (Anesthesia) ROS Narrative System reviewed and no additional complaints, except as documented. Physical Exam Const alert and oriented x3 Orientation / Consciousness: awake Resp normal respiratory effort and normal air movement Cardio regular rate and regular rhythm Back/Spine normal ROM Neuro oriented x3 and moves all extremities
[2024-10-23 12:19] LABS: Internal QC Validated? YES +Cl - CLEAR BKGD
[2024-10-23 12:20] LABS: Pregnancy, Urine Negative Negative
--- NOTE | 2024-10-23 12:30 | BRBX_PTH ---
PATIENT: CODIE KAUR [place] [facility] [id number] AGE/SX: 34/F ROOM: RE10/23/[address]: Dr. Harley Carlos MD : 1990 BED: DIS: 10/23/2024 SPEC #: [id number] RECD: 10/23/24 14:31 STATUS: MYRNA REKurtis #: [id number] ESTER: 10/23/24 12:[address]: Harley Carlos DEPT: SURGICAL PATHOLOGY RECD BY: Lisset Thomas ENTERED: 10/24/24 10:40 SP TYPE: BREAST BX OTHR DR: Toño Mcclelland, ERIN Tissues: Right breast, NOS Procedures: Surgery Specimen Level IV HEADER OPERATION: Excisional biopsy right breast mass PRE-OP DIAGNOSIS: Right breast mass TISSUE SUBMITTED: Right breast mass MICROSCOPIC DIAGNOSIS Right breast mass, excisional biopsy: Fibroadenoma (1cm in greatest dimension). Focal fibrocystic changes. Negative for atypia or malignancy. See comment. PATRICIAEvette 10/25/2024 COMMENT Clinical correlation and appropriate follow up are necessary. MICROSCOPIC DESCRIPTION Slides are reviewed. GROSS DESCRIPTION Received in fixative is one container labeled with the patient's name and designated Right breast mass. The specimen consists of an unoriented piece of fibroadipose tissue measuring 5 x 3.5 x 2cm. This specimen is inked, serially sectioned reveal stauffer-yellow adipose cut surfaces mixed with stauffer-white fibrous areas. No well-defined mass is noted. The entire specimen is submitted in eight cassettes from one end to another end. 10/24/2024 TC:1 [facility]:[id number]
[2024-10-23] MEDS: Bupivacaine Mpf 0.5% 30 ML VIAL (13:06)
--- NOTE | 2024-10-23 13:46 | PCM.POST.ANE ---
Anesthesia: Postop Eval I Current Vital Signs Temperature: 97.3 F Pulse Rate: 66 Blood Pressure: 112/49 Respiratory Rate: 16 Pulse Ox: 100 Oxygen Delivery Method: Room Air Assessment Airway patent: Yes Spontaneous unlabored respirations: Yes Mental status: Awake and Calm nausea: No Vomiting: No Anesthesia Complication: No Fluid Hydration Crystalloid volume administer (ml): 500 Total IV fluid infused: 500 Progress Note Anesthesia document: Postop Eval 1 completed: Yes
--- NOTE | 2024-10-23 13:52 | EX.PCM.DISCH ---
Discharge Instructions Diet Discharge Diet: Light diet - advance as tolerated Activity Discharge Activity: Return to Normal Activity May shower in (days): 1 Ice area for (Minutes): 30 Dressing / Incision Call your doctor if your incision/area has: Continuous Slow Oozing, Sudden Increased Bleeding, Increased Pain/ Swelling, Increased Redness, Foul Smelling Discharge and Swelling at the incision site Call your doctor if you observe: Fever of 101 or Higher Remove Dressing in: leave until fall off (skin glue will wear off in 2-3 weeks) Cleanse incision/area with: Soap & Water Additional Dressing/Incision Instructions:: remove dressing prior to first showed - do not need to replace Follow Up Care Please Follow Up With: Harley Carlos MD When: 2 weeks Test Results: Test results from this visit will be discussed in further detail at your follow-up appointment, if applicable. Discharge Plan Admission Primary Reason for Your Visit: Right breast excisional biopsy Attending Provider: Harley Carlos Primary Care Provider: Toño Mcclelland Instructions Print Language: Singaporean Discharge Orders/Prescriptions Prescriptions: New oxycodone-acetaminophen [Percocet] 5-325 mg tablet 1 tab PO Q8H PRN (Reason: pain) 3 Days Qty: 5 0RF Continued ParaGard T 380A 380 square mm intrauterine device 1 device INTRA-UTER ONCE Rx Instructions: as a single dose Referrals / Follow Up: Toño Mcclelland, CHIEF OF INTERNAL MEDICINE-[facility] [Primary Care Provider] - Disposition Disposition (needs filled in before D/C Order can be placed): Home, Self Care
--- NOTE | 2024-10-23 13:57 | OP.PCM_ITS ---
Procedures Integumentary 16xxx-193xx: [id number] Partial mastectomy Operative Report (Standard) Operative Information Date of Procedure: 10/23/24 Pre-Operative Diagnosis: Right breast mass Post-Operative Diagnosis: Same Surgery/Procedure Performed: Right breast excisional biopsy product transfer pumper: Yes Marketing Automation Specialist: Reginald Hoang Tasks completed by assistant professor of physics: Closing and Retracting Additional children's nursery assistant?: No Type of Anesthesia: General and Local RN Documented Start/Stop Times: Operation Date: 10/23/24 12:30 Case Time Into Pre-Op 10/23/24 12:03 Anesthesia Start 10/23/24 12:43 Into Room 10/23/24 12:43 Procedure Start 10/23/24 13:01 Procedure End 10/23/24 13:31 Anesthesia End 10/23/24 13:37 Out of Room 10/23/24 13:37 Into Recovery 10/23/24 13:40 Into Phase II Recovery 10/23/24 13:51 Out of Recovery 10/23/24 13:51 Procedure Start Time: 13:01 Procedure Stop Time: 13:31 Select all DRAINS/GRAFTS/IMPLANTS that apply: None Special Medications: None Estimated Blood Loss: Minimal Specimen collected: Yes Description of specimen(s) removed: Right breast mass Description of surgery: The patient is a 34-year-old female who recently noted a palpable mass in the upper outer quadrant of the right breast. She brought this to the attention of her primary care provider and mammogram and ultrasound were performed. The ultrasound showed a 1.2 cm abnormality the corresponded to the palpable mass. This was read as a BI-RADS 4 and biopsy was recommended. Patient was seen in my office last week for this mass. We discussed options of an office core biopsy versus operative excisional biopsy. Patient requested that she be asleep for any type of biopsy or procedure. I felt this was a reasonable plan to perform a right breast excisional biopsy. We discussed the details of the planned procedure including the risks benefits and alternatives. She wished to proceed. The patient was brought to the operating today following informed consent. She was placed supine on the operative table with arms outstretched on arm boards. The palpable mass was identified and marked in the preop area. Once she was asleep this was reevaluated using bedside ultrasound. This mass corresponded to the ultrasound findings. The area was then prepped and draped in the usual sterile manner. Local anesthetic was infiltrated into the vicinity. A #15 blade was then used to make a 2 cm incision. Bovie electrocautery was then used dissect down through subcutaneous tissues. The abnormality was palpated and grasped using an Allis clamp. I was then able to excise the lesion. There was a fair amount of fibroglandular tissue in this area. Even once removed this lesion was easily movable within the specimen. Hemostasis was excellent. The wound was then closed using 3-0 Vicryl and then 4-0 Vicryl was run in the skin. Skin glue was applied as dressing along with a OpSite. She was awakened from anesthesia and taken to PACU in good condition. A CHILDREN'S CHOIR DIRECTOR was utilized as a plastic surgery assistant. His role included assistance with retraction and skin closure. Surgical Findings: See operative note Complications Complications: No Admit VTE Documentation VTE Present on Admission: No VTE Mechan Device Prophylaxis: SCD's VTE Pharm Prophylaxis ordered?: No Reason prophylaxis not ordered: Treatment Not Indicated
--- NOTE | 2024-10-23 14:09 | POSTOPAN2_ITS ---
Anesthesia Postop Eval I Sum Postop Eval Completion status Anesthesia document: Postop Eval 1 completed: Yes Anesthesia Postop Eval I Summary Anesthesia Postop Eval I Summary: Anesthesia Postop Eval I: Assessment Summary Airway patent Yes 10/23/24 13:47 SOLAR ENERGY CONSULTANT AND DESIGNER.SKOBY Spontaneous unlabored Yes 10/23/24 13:47 SOLAR ENERGY CONSULTANT AND DESIGNER.JOSETTE respirations Mental status Awake,Calm 10/23/24 13:47 SOLAR ENERGY CONSULTANT AND DESIGNER.SKOBY nausea No 10/23/24 13:47 SOLAR ENERGY CONSULTANT AND DESIGNER.WALLACEOBY Vomiting No 10/23/24 13:47 SOLAR ENERGY CONSULTANT AND DESIGNER.WALLACEOBJefry Anesthesia Postop Eval I: Fluid Summary Crystalloid volume administer 500 10/23/24 13:47 SOLAR ENERGY CONSULTANT AND DESIGNER.SKOBY (ml) Colloids volume administered ( ml) Blood Product volume administered (ml) Total IV fluid infused 500 10/23/24 13:47 SOLAR ENERGY CONSULTANT AND DESIGNER.JOSETTE Anesthesia Postop Eval I: Summary Notes Anesthesia Complication No 10/23/24 13:47 SOLAR ENERGY CONSULTANT AND DESIGNER.JOSETTE Anesthesia Complication Comment: Post-operative progress note Anesthesia: Postop Eval II Evaluation Mental status: Awake and Calm Pain Level: 0 nausea: No Vomiting: No Complications Anesthesia Complication: No
--- NOTE | 2024-10-23 14:09 | PCM.POSTANE2 ---
Anesthesia Postop Eval I Sum Postop Eval Completion status Anesthesia document: Postop Eval 1 completed: Yes Anesthesia Postop Eval I Summary Anesthesia Postop Eval I Summary: Anesthesia Postop Eval I: Assessment Summary Airway patent Yes 10/23/24 13:47 HOLISTIC SPECIALIST.SKOBY Spontaneous unlabored Yes 10/23/24 13:47 HOLISTIC SPECIALIST.JOSETTE respirations Mental status Awake,Calm 10/23/24 13:47 HOLISTIC SPECIALIST.SKOBY nausea No 10/23/24 13:47 HOLISTIC SPECIALIST.WALLACEOBY Vomiting No 10/23/24 13:47 HOLISTIC SPECIALIST.WALLACEOBJefry Anesthesia Postop Eval I: Fluid Summary Crystalloid volume administer 500 10/23/24 13:47 HOLISTIC SPECIALIST.SKOBY (ml) Colloids volume administered ( ml) Blood Product volume administered (ml) Total IV fluid infused 500 10/23/24 13:47 HOLISTIC SPECIALIST.JOSETTE Anesthesia Postop Eval I: Summary Notes Anesthesia Complication No 10/23/24 13:47 HOLISTIC SPECIALIST.JOSETTE Anesthesia Complication Comment: Post-operative progress note Anesthesia: Postop Eval II Evaluation Mental status: Awake and Calm Pain Level: 0 nausea: No Vomiting: No Complications Anesthesia Complication: No
== END 2024-10-23 14:29 | disposition home or self-care (01) ==
LOC: SDC 11:42 → AC 11:43
PROVIDERS: Anesthesiology; PCP Nurse Practitioner Family; Referring Provider Surgery; Visit Provider Surgery
PROC: (CPT 19083; principal; 2024-10-23 12:15)
DX: D24.1 Benign neoplasm of right breast (principal); F17.210 Nicotine dependence, cigarettes, uncomplicated
CPT/HCPCS: 19120; 00400; 81025; 88305; A4216; J2405